=== PATIENT | female | born 1935 | race Hispanic/Latino ===

== ENCOUNTER → 2018-12-07 | Day surgery (SDC) | payer MEDICARE, OTHER ==
[2018-12-06 17:11] LABS: BASOPHILS % 0.7 % (0.0-1.0); EOSINOPHILS # (AUTO) 0.2 (0.0-0.4); EOSINOPHILS % 3.6 % (0.0-6.0); HEMATOCRIT 31.6 % (34.2-44.1); HEMOGLOBIN 10.5 g/dL (12.0-16.0); LYMPHOCYTES # (AUTO) 2.2 (1.0-3.2); MEAN CORPUSCULAR HEMOGLOBIN 30.8 pg (28-32); MEAN CORPUSCULAR HGB CONC 33.2 g/dL (31-35); MEAN CORPUSCULAR VOLUME 92.7 fL (81-99); MONOCYTES # (AUTO) 0.5 (0.2-0.8); MONOCYTES % 8.2 % (4.4-11.3); NEUTROPHILS # (AUTO) 2.9 (2.1-6.9); NEUTROPHILS % 48.8 % (38.7-80.0); PLATELET COUNT 240 x10e3/uL (140-360); RED BLOOD COUNT 3.41 x10e6/uL (3.6-5.1); RED CELL DISTRIBUTION WIDTH 14.9 % (11.7-14.4)
[~2018-12-07] MED LIST: ALLOPURINOL300 MG PO; ATORVASTATIN CA20 MG PO; ENALAPRIL MALEA20 MG PO; HYDROCHLOROTHIA25 MG PO; METOPROLOL TART25 MG PO; PROPOFOL IV EMULSION 10 MG/ML 50 ML VIAL ONE
--- OUTSIDE RECORDS SUMMARY | 2018-12-07 06:11 | XMS REPORT ---
[facility] Address Unknown Phone Unavailable Care Team Providers Care Humanities And Languages Professor Name Role Phone Unavailable Unavailable Problems This patient has no known problems. Allergies, Adverse Reactions, Alerts This patient has no known allergies or adverse reactions. Medications This patient has no known medications. Results Test Description Test Time Test Comments Text Results Atomic Results Result Comments SCR MAMM BILATERAL DANIELLE CAD DIGITAL 2018-05-30 16:55:55 - SCR MAMM BILATERAL DANIELLE CAD DIGITALBILATERAL DIGITAL SCREENING MAMMOGRAM 3D/2D WITH CAD: 05/25/2018CLINICAL: Asymptomatic. Digital breast tomosynthesis was performed in addition to routine CC and MLO views. Current mammographic images were evaluated by either a Capture[employer]-Vu or an [employer] version 7.2 computer aided detection system. Comparison is made to exam dated 11/24/2016 mammogram - [facility]. The tissue of both breasts is heterogeneously dense. This may lower the sensitivity of mammography. There are benign vascular calcifications and calcifications in both breasts. There also is a benign intramammary node in the right breast. No suspicious mass, architectural distortion, malignant type calcification, or lymph node abnormality detected. Breast architecture is stable compared to prior exams.IMPRESSION: BENIGNThere is no mammographic evidence of malignancy. Resume annual screening mammography in one year. Martina arredondo/josefa:05/30/2018 16:55:55 Entry: cp - 05/31/2018 14:21:48Attending Technologist: Diana Ortiz MM, [facility] Technologist: Sierra Apodaca MM, [facility]ographyletter sent: BIRADS 1-2 Normal Mammogram BI-RADS: 2 Benign
--- NOTE | 2018-12-07 07:05 | NUR ---
Presurgery: Pt unavailable at this time. I will follow up as able. CARLOTA Soto Spiritual Care Department O: [phone] Pager: [phone])
[2018-12-07 10:10] VITALS: BP 144/82
== END | disposition home or self-care (01) ==
LOC: OR 06:08
PROVIDERS: ATTEND Internal Medicine Gastroenterology
DX: K92.1 Melena (principal); D12.0 Benign neoplasm of cecum; D12.3 Benign neoplasm of transverse colon; Z71.3 Dietary counseling and surveillance; K57.30 Diverticulosis of large intestine without perforation or abscess without bleeding; K64.8 Other hemorrhoids; I10 Essential (primary) hypertension; E11.9 Type 2 diabetes mellitus without complications; E66.3 Overweight; E78.00 Pure hypercholesterolemia, unspecified; Z01.810 Encounter for preprocedural cardiovascular examination; Z01.812 Encounter for preprocedural laboratory examination; Z68.27 Body mass index [BMI] 27.0-27.9, adult
CPT/HCPCS: 36415; 45378; 45385; 85025; 93005

== ENCOUNTER 2022-12-31 16:48 | Inpatient (IN) | payer MEDICARE, OTHER ==
[~2022-12-31] VITALS: Ht 144.8 cm; Wt 54.4 kg
[~2022-12-31 16:48] MED LIST changes: -PROPOFOL IV EMULSION 10 MG/ML 50 ML VIAL ONE
[2022-12-31] MEDS ORDERED: SODIUM CHLORIDE 0.9% 1000ML 1,000 ML IV STA (17:20)
[2022-12-31] MEDS ORDERED: ASPIRIN 81 MG CHEW TAB PO ONE (17:30)
[2022-12-31 17:34] LABS: BASOPHILS % 0.3 % (0.0-1.0); HEMOGLOBIN 9.6 g/dL (12.0-16.0); LYMPHOCYTES # (AUTO) 0.7 (1.0-3.2); LYMPHOCYTES % 6.5 % (18.0-39.1); MEAN CORPUSCULAR HEMOGLOBIN 28.3 pg (28-32); MEAN CORPUSCULAR HGB CONC 33.1 g/dL (31-35); MEAN CORPUSCULAR VOLUME 85.5 fL (81-99); MONOCYTES # (AUTO) 0.4 (0.2-0.8); MONOCYTES % 3.3 % (4.4-11.3); NEUTROPHILS # (AUTO) 9.5 (2.1-6.9); PLATELET COUNT 268 x10e3/uL (140-360); RED BLOOD COUNT 3.39 x10e6/uL (3.6-5.1)
[2022-12-31 17:39] LABS: INR 1.08; PROTHROMBIN TIME 14.5 seconds (11.9-14.5)
[2022-12-31 17:40] LABS: PARTIAL THROMBOPLASTIN TIME 27.7 seconds (23.8-35.5)
[2022-12-31 17:54] LABS: ALANINE AMINOTRANSFERASE 173 IU/L (0-55); ALBUMIN 3.2 g/dL (3.5-5.0); ALBUMIN/GLOBULIN RATIO 0.7 (0.8-2.0); ALKALINE PHOSPHATASE 75 IU/L (40-150); ANION GAP 27.3 mmol/L (8-16); CALCIUM 10.5 mg/dL (8.4-10.2); CARBON DIOXIDE 12 mmol/L (22-29); CHLORIDE 104 mmol/L (98-107); CREATINE KINASE 4259 IU/L (29-168); CREATININE, SERUM 8.12 mg/dL (0.57-1.11); GLUCOSE 194 mg/dL (74-118); MAGNESIUM 2.6 MG/DL (1.3-2.1); POTASSIUM 5.3 mmol/L (3.5-5.1); SODIUM 138 mmol/L (136-145)
[2022-12-31] MEDS ORDERED: CALCIUM CHLORIDE 10% 1.36 MEQ/ML 10ML SYR IV STA (18:02)
[2022-12-31] MEDS ORDERED: SODIUM BICARBONATE 8.4% INJ 50 ML SYR IV STA (18:02)
[2022-12-31] MEDS ORDERED: DEXTROSE 50% SYRINGE 50 ML IV STA (18:02)
[2022-12-31] MEDS ORDERED: INSULIN REGULAR, HUMAN 100 UNIT/1 ML IV ONE (18:15)
[2022-12-31 18:26] LABS: BLOOD UREA NITROGEN 189 mg/dL (7-26)
[2022-12-31 18:58] LABS: CLARITY,URINE CLEAR (CLEAR); COLOR,URINE YELLOW (YELLOW); KETONES,URINE NEGATIVE (NEGATIVE); LEUKOCYTE ESTERASE ,URINE NEGATIVE (NEGATIVE); NITRITE,URINE NEGATIVE (NEGATIVE); PROTEIN,URINE DIPSTICK 2+ (NEGATIVE); URINE UROBILINOGEN 0.2 mg/dL (0.2 - 1)
[2022-12-31] MEDS: SODIUM CHLORIDE 0.9% 1000ML 1,000 ML IV SCH (19:02)
[2022-12-31 19:07] LABS: BACTERIA,URINE RARE /HPF; EPITHELIAL CELLS,URINE RARE /LPF; WBC,URINE (MAN) 0-5 /HPF (0-5)
[2022-12-31] MEDS ORDERED: ONDANSETRON HCL INJ 2MG/ML 2ML 2 MG/ML VIAL IV PRN (20:00)
[2022-12-31] MEDS ORDERED: DEXTROSE 50% SYRINGE 50 ML IV PRN (20:00)
[2022-12-31] MEDS: INSULIN REGULAR, HUMAN 100 UNIT/1 ML SQ SCH (21:00)
[2022-12-31 22:20] VITALS: PULSE 90; RESP 18; O2SAT 96
[2022-12-31 22:53] VITALS: BP 132/54; PULSE 90; RESP 18; TEMP 98.1; O2SAT 100
[2022-12-31 23:14] VITALS: BP 132/54; PULSE 90; RESP 18; TEMP 98.1; O2SAT 100
[2023-01-01] VITALS (10 sets, daily range): BP systolic 100–132; BP diastolic 42–54; PULSE 70–90; RESP 15–18; TEMP 97.5–98.4; O2SAT 96–100
[2023-01-01 02:49] LABS: ABG HCO3 17 mmol/L (22-26); ABG PCO2 28 mmHg (35-45); ABG PH 7.38 (7.35-7.45); ABG PO2 112 mmHg (80-105); ABG TCO2 18
[2023-01-01] MEDS ORDERED: LOSARTAN-HCTZ1 EAC2 PO (04:47)
[2023-01-01] MEDS ORDERED: TRADJENTA5 MG PO (04:47)
[2023-01-01] MEDS: SODIUM CHLORIDE 0.9% 1000ML 1,000 ML IV SCH ×2 (04:56→17:37)
[2023-01-01 05:52] LABS: BASOPHILS % 0.4 % (0.0-1.0); EOSINOPHILS # (AUTO) 0.2 (0.0-0.4); EOSINOPHILS % 1.8 % (0.0-6.0); HEMOGLOBIN 7.6 g/dL (12.0-16.0); LYMPHOCYTES # (AUTO) 1.2 (1.0-3.2); MEAN CORPUSCULAR HEMOGLOBIN 28.3 pg (28-32); MEAN CORPUSCULAR HGB CONC 31.7 g/dL (31-35); MEAN CORPUSCULAR VOLUME 89.2 fL (81-99); MONOCYTES # (AUTO) 0.6 (0.2-0.8); MONOCYTES % 6.3 % (4.4-11.3); NEUTROPHILS # (AUTO) 7.5 (2.1-6.9); NEUTROPHILS % 78.5 % (38.7-80.0); PLATELET COUNT 205 x10e3/uL (140-360); RED BLOOD COUNT 2.69 x10e6/uL (3.6-5.1); RED CELL DISTRIBUTION WIDTH 16.6 % (11.7-14.4)
[2023-01-01 06:40] LABS: ALANINE AMINOTRANSFERASE 126 IU/L (0-55); ALBUMIN 2.6 g/dL (3.5-5.0); ALBUMIN/GLOBULIN RATIO 0.7 (0.8-2.0); ALKALINE PHOSPHATASE 56 IU/L (40-150); CALCIUM 10.6 mg/dL (8.4-10.2); CARBON DIOXIDE 16 mmol/L (22-29); CHLORIDE 110 mmol/L (98-107); CREATININE, SERUM 6.98 mg/dL (0.57-1.11); GLUCOSE 108 mg/dL (74-118); SODIUM 143 mmol/L (136-145)
[2023-01-01 06:41] LABS: BLOOD UREA NITROGEN 178 mg/dL (7-26)
[2023-01-01] MEDS: INSULIN REGULAR, HUMAN 100 UNIT/1 ML SQ SCH ×4 (07:30→20:49)
[2023-01-01] MEDS ORDERED: HYDRALAZINE HCL 20 MG/ML VIAL IV PRN (11:15)
[2023-01-01 16:52] LABS: PHOSPHORUS 7.5 MG/DL (2.3-4.7)
[2023-01-01 20:42] LABS: CREATININE,URINE RANDOM 41.39 mg/dL (47-110); SODIUM,URINE 91 mmol/L
[2023-01-01 21:29] LABS: EOSINOPHIL SMEAR,URINE NONE SEEN (NONE SEEN)
[2023-01-02] VITALS (8 sets, daily range): BP systolic 100–131; BP diastolic 44–53; PULSE 75–83; RESP 16–20; TEMP 97.7–99.2; O2SAT 96–100
[2023-01-02] MEDS: SODIUM CHLORIDE 0.9% 1000ML 1,000 ML IV SCH ×3 (01:20→20:30)
[2023-01-02 06:07] LABS: BASOPHILS % 0.5 % (0.0-1.0); EOSINOPHILS # (AUTO) 0.3 (0.0-0.4); EOSINOPHILS % 4.2 % (0.0-6.0); HEMOGLOBIN 7.1 g/dL (12.0-16.0); LYMPHOCYTES # (AUTO) 1.4 (1.0-3.2); LYMPHOCYTES % 17.7 % (18.0-39.1); MEAN CORPUSCULAR HEMOGLOBIN 28.2 pg (28-32); MEAN CORPUSCULAR VOLUME 88.1 fL (81-99); MONOCYTES # (AUTO) 0.5 (0.2-0.8); MONOCYTES % 7.1 % (4.4-11.3); NEUTROPHILS # (AUTO) 5.2 (2.1-6.9); NEUTROPHILS % 68.3 % (38.7-80.0); PLATELET COUNT 182 x10e3/uL (140-360); RED BLOOD COUNT 2.52 x10e6/uL (3.6-5.1); RED CELL DISTRIBUTION WIDTH 16.9 % (11.7-14.4)
[2023-01-02 06:38] LABS: ANION GAP 18.6 mmol/L (8-16); CALCIUM 8.9 mg/dL (8.4-10.2); CARBON DIOXIDE 14 mmol/L (22-29); CHLORIDE 114 mmol/L (98-107); CREATININE, SERUM 5.08 mg/dL (0.57-1.11); GLUCOSE 96 mg/dL (74-118); POTASSIUM 3.6 mmol/L (3.5-5.1); SODIUM 143 mmol/L (136-145)
[2023-01-02 06:39] LABS: HEMATOCRIT 22.2 % (34.2-44.1)
[2023-01-02 06:41] LABS: BLOOD UREA NITROGEN 156 mg/dL (7-26)
[2023-01-02 06:45] LABS: PHOSPHORUS 6.5 MG/DL (2.3-4.7)
[2023-01-02] MEDS ORDERED: FUROSEMIDE INJ 10 MG/ML 2 ML VIAL IV ONE (07:00)
[2023-01-02] MEDS ORDERED: SODIUM CHLORIDE 0.9% 250ML 250 ML IV ONE (07:00)
[2023-01-02 07:07] LABS: THYROID STIMULATING HORMONE 1.455 uIU/mL (0.350-4.940)
[2023-01-02] MEDS: INSULIN REGULAR, HUMAN 100 UNIT/1 ML SQ SCH ×4 (07:30→21:00)
[2023-01-02] MEDS ORDERED: SODIUM CHLORIDE 0.9% 500ML 500 ML ONE (09:30)
[2023-01-02] MEDS ORDERED: SODIUM CHLORIDE 0.9% 250ML 250 ML ONE (13:44)
[2023-01-02 15:56] LABS: BASOPHILS % 0.5 % (0.0-1.0); EOSINOPHILS # (AUTO) 0.2 (0.0-0.4); HEMATOCRIT 31.2 % (34.2-44.1); HEMOGLOBIN 10.3 g/dL (12.0-16.0); LYMPHOCYTES # (AUTO) 1.1 (1.0-3.2); LYMPHOCYTES % 13.3 % (18.0-39.1); MEAN CORPUSCULAR HEMOGLOBIN 29.3 pg (28-32); MEAN CORPUSCULAR VOLUME 88.9 fL (81-99); MONOCYTES # (AUTO) 0.5 (0.2-0.8); MONOCYTES % 6.4 % (4.4-11.3); NEUTROPHILS % 74.4 % (38.7-80.0); PLATELET COUNT 178 x10e3/uL (140-360); RED BLOOD COUNT 3.51 x10e6/uL (3.6-5.1); RED CELL DISTRIBUTION WIDTH 16.5 % (11.7-14.4)
[2023-01-02 16:44] LABS: ANION GAP 18.5 mmol/L (8-16); CARBON DIOXIDE 14 mmol/L (22-29); CHLORIDE 113 mmol/L (98-107); CREATININE, SERUM 4.65 mg/dL (0.57-1.11); GLUCOSE 129 mg/dL (74-118); POTASSIUM 3.5 mmol/L (3.5-5.1); SODIUM 142 mmol/L (136-145)
[2023-01-02 16:46] LABS: BLOOD UREA NITROGEN 139 mg/dL (7-26)
[2023-01-03] VITALS (7 sets, daily range): BP systolic 113–124; BP diastolic 45–73; PULSE 69–77; RESP 16–19; TEMP 97.5–98.5; O2SAT 98–100
[2023-01-03 05:22] LABS: BASOPHILS % 0.5 % (0.0-1.0); EOSINOPHILS # (AUTO) 0.3 (0.0-0.4); EOSINOPHILS % 3.7 % (0.0-6.0); HEMATOCRIT 34.9 % (34.2-44.1); HEMOGLOBIN 11.8 g/dL (12.0-16.0); LYMPHOCYTES % 13.1 % (18.0-39.1); MEAN CORPUSCULAR HEMOGLOBIN 29.7 pg (28-32); MEAN CORPUSCULAR HGB CONC 33.8 g/dL (31-35); MEAN CORPUSCULAR VOLUME 87.9 fL (81-99); MONOCYTES # (AUTO) 0.5 (0.2-0.8); MONOCYTES % 6.3 % (4.4-11.3); NEUTROPHILS # (AUTO) 5.7 (2.1-6.9); NEUTROPHILS % 73.7 % (38.7-80.0); PLATELET COUNT 165 x10e3/uL (140-360); RED BLOOD COUNT 3.97 x10e6/uL (3.6-5.1); RED CELL DISTRIBUTION WIDTH 15.9 % (11.7-14.4)
[2023-01-03 05:56] LABS: CREATININE, SERUM 3.72 mg/dL (0.57-1.11)
[2023-01-03] MEDS: INSULIN REGULAR, HUMAN 100 UNIT/1 ML SQ SCH ×4 (07:30→22:18)
[2023-01-03] MEDS: SODIUM CHLORIDE 0.9% 1000ML 1,000 ML IV SCH (08:04)
[2023-01-03] MEDS: MEGESTROL ACETATE 40 MG TAB PO SCH ×2 (10:45→16:39)
[2023-01-03] MEDS: D5NS/KCL 20MEQ 1,000 ML IV SCH ×2 (10:45→22:11)
[2023-01-03] MEDS: MIRTAZAPINE 15 MG TAB PO SCH (22:10)
[2023-01-04] VITALS: BP 120/46; PULSE 71; RESP 18; TEMP 98.1; O2SAT 100
[2023-01-04 05:54] LABS: BASOPHILS # (AUTO) 0.1 (0.0-0.1); BASOPHILS % 0.9 % (0.0-1.0); EOSINOPHILS # (AUTO) 0.3 (0.0-0.4); EOSINOPHILS % 4.8 % (0.0-6.0); HEMATOCRIT 34.5 % (34.2-44.1); HEMOGLOBIN 10.9 g/dL (12.0-16.0); LYMPHOCYTES # (AUTO) 1.2 (1.0-3.2); LYMPHOCYTES % 17.5 % (18.0-39.1); MEAN CORPUSCULAR HEMOGLOBIN 29.5 pg (28-32); MEAN CORPUSCULAR HGB CONC 31.6 g/dL (31-35); MEAN CORPUSCULAR VOLUME 93.5 fL (81-99); MONOCYTES # (AUTO) 0.5 (0.2-0.8); MONOCYTES % 6.9 % (4.4-11.3); NEUTROPHILS # (AUTO) 4.5 (2.1-6.9); NEUTROPHILS % 64.3 % (38.7-80.0); PLATELET COUNT 153 x10e3/uL (140-360); RED BLOOD COUNT 3.69 x10e6/uL (3.6-5.1); RED CELL DISTRIBUTION WIDTH 17.2 % (11.7-14.4)
[2023-01-04 06:18] LABS: ANION GAP 14.2 mmol/L (8-16); CALCIUM 8.1 mg/dL (8.4-10.2); CREATININE, SERUM 2.66 mg/dL (0.57-1.11); POTASSIUM 3.2 mmol/L (3.5-5.1)
[2023-01-04] MEDS: D5NS/KCL 20MEQ 1,000 ML IV SCH ×2 (06:43→21:29)
[2023-01-04 08:00] VITALS: BP 107/37; PULSE 63; RESP 18; TEMP 98.2; O2SAT 98
[2023-01-04 08:40] VITALS: BP 107/37; PULSE 63; RESP 18; TEMP 98.2; O2SAT 98
[2023-01-04] MEDS: INSULIN REGULAR, HUMAN 100 UNIT/1 ML SQ SCH ×4 (08:50→21:00)
[2023-01-04] MEDS: MEGESTROL ACETATE 40 MG TAB PO SCH ×2 (08:56→16:54)
[2023-01-04 11:38] VITALS: BP 111/50; PULSE 70; RESP 19; TEMP 98; O2SAT 99
[2023-01-04] MEDS ORDERED: POTASSIUM CHLORIDE 20 MEQ TAB CR PO ONE (12:45)
[2023-01-04 16:00] VITALS: BP 122/62; PULSE 74; RESP 19; TEMP 97.7; O2SAT 100
[2023-01-04 20:00] VITALS: BP_SYST 116; BP_SYST 98; BP_DIAS 50; BP_DIAS 85; PULSE 79; RESP 18; TEMP 97.7; TEMP 97.9; O2SAT 100
[2023-01-04] MEDS: MIRTAZAPINE 15 MG TAB PO SCH (21:21)
[2023-01-05] MEDS: D5NS/KCL 20MEQ 1,000 ML IV SCH (03:20)
[2023-01-05 04:00] VITALS: BP 129/52; PULSE 70; RESP 18; TEMP 98.6; O2SAT 99
[2023-01-05 06:17] LABS: ANION GAP 12.9 mmol/L (8-16); CALCIUM 8.3 mg/dL (8.4-10.2); CREATININE, SERUM 2.16 mg/dL (0.57-1.11); POTASSIUM 3.9 mmol/L (3.5-5.1)
[2023-01-05 08:24] VITALS: BP 124/56; PULSE 65; RESP 16; TEMP 98.4; O2SAT 96
[2023-01-05] MEDS ORDERED: ONDANSETRON HCL 4 MG ORAL DISINTEGRATING TAB PO PRN (08:45)
[2023-01-05] MEDS ORDERED: ACETAMINOPHEN 325 MG TAB PO PRN (08:45)
[2023-01-05 09:00] VITALS: BP 124/56; PULSE 65; RESP 16; TEMP 98.4; O2SAT 96
[2023-01-05] MEDS: MEGESTROL ACETATE 40 MG TAB PO SCH (09:01)
[2023-01-05] MEDS ORDERED: BUPIVACAINE 0.25% 30ML SDV ONE (11:02)
== END 2023-01-05 13:18 | disposition hospice, home (50) | DRG 682 ==
LOC: ER 17:00 → ERHOLD 19:59 → MED/SURG3 22:36
PROVIDERS: ADMIT Internal Medicine; ATTEND Internal Medicine
DX: N17.0 Acute kidney failure with tubular necrosis (principal); E43 Unspecified severe protein-calorie malnutrition; E87.20 Acidosis, unspecified; N13.8 Other obstructive and reflux uropathy; J98.11 Atelectasis; M62.82 Rhabdomyolysis; Z66 Do not resuscitate; Z51.5 Encounter for palliative care; R62.7 Adult failure to thrive; E87.6 Hypokalemia; E86.0 Dehydration; R53.81 Other malaise; G30.8 Other Alzheimer's disease; F02.80 Dementia in other diseases classified elsewhere, unspecified severity, without behavioral disturbance, psychotic disturbance, mood disturbance, and anxiety; R53.1 Weakness; R33.9 Retention of urine, unspecified; I12.9 Hypertensive chronic kidney disease with stage 1 through stage 4 chronic kidney disease, or unspecified chronic kidney disease; E11.22 Type 2 diabetes mellitus with diabetic chronic kidney disease; N18.9 Chronic kidney disease, unspecified; Z79.899 Other long term (current) drug therapy; Z68.20 Body mass index [BMI] 20.0-20.9, adult; Z20.822 Contact with and (suspected) exposure to COVID-19
CPT/HCPCS: 0223U; 36415; 51700; 70450; 71045; 76770; 78580; 80048; 80053; 81001; 81015; 82550; 82570; 82805; 82948; 83036; 83735; 83880; 83970; 84100; 84165; 84166; 84300; 84443; 84484; 84550; 85025; 85379; 85610; 85730; 86021; 86039; 86160; 86431; 86850; 86900; 86920; 87086; 87340; 93005; 94799; 96361; 99284; A9540; J0696; J1940; J7030; J7040; J7050; J7799; P9016